=== PATIENT | male | born 1990 | race African-American/Black ===

== ENCOUNTER 2024-04-03 22:41 | Emergency (ER) | payer OTHER, SELFPAY ==
[2024-04-04] MEDS ORDERED: Dexamethasone 10 MG/ML VIAL ONE (01:49)
== END 2024-04-04 02:00 | disposition home or self-care (01) ==
LOC: CSHERS 22:41
DX: U07.1 COVID-19 (principal); F17.290 Nicotine dependence, other tobacco product, uncomplicated
CPT/HCPCS: 99283; J1100